=== PATIENT | male | born 1995 | race African-American/Black ===

== ENCOUNTER 2016-08-02 18:29 | Emergency (ER) | payer MEDICAID ==
[2016-08-02 18:34] VITALS: BP 130/61; PULSE 68; TEMP 98.6; BMI 23.3
--- NOTE | 2016-08-02 19:58 | EDPRACDOC ---
- General Information Chief Complaint: Anxiety Illness Stated Complaint: ANXIETY Time Seen by Provider: 08/02/16 19:53 Information Source: Patient Mode of Arrival: Car Home Medications: Home Medications Sertraline HCl 200 mg PO QHS 07/12/15 Divalproex Sodium [Depakote ER] 500 mg PO QHS 02/14/16 Trazodone HCl [Desyrel] 50 mg PO QHS 02/14/16 Ibuprofen Tablet [Motrin] 800 mg PO TID #30 tab 03/13/16 Hydrocodone Bit/Acetaminophen [[place] 5-325 Tablet] 1 each PO Q4H #15 tab Hydrocodone/Acetaminophen [Lortab 5-325 mg Tablet] 1 each PO Q4H PRN #10 tablet 04/08/16 Allergies/Adverse Reactions: Allergies Allergy/AdvReac Type Severity Reaction Status Date / Time No Known Allergies Allergy Verified 03/15/16 13:23 - History 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 HE SAID HE LIVES WITH HIS MOM AND DOES NOT KNOW HOW TO COOK. THE MOM LEFT FOOD AT THE HOUSE, BUT PT DID NOT KNOW HOW TO HEAT IT UP. HE CALLED EMS B/C HE WAS HUNGRY. PT IS NOW ON HIS 2ND SANDWICH AND FEELS BETTER. PT DENIES SI/HI. THE PT DOES C/O OF PAIN IN HIS RIGHT HAND WHERE HE HAD A BOXER'S FX. Reason for Seeking Treatment: 911 Call Presents With: Reports: Anxiety Expresses: Reports: None Suicidal Plan: Reports: None Associated Signs and Symptoms: Reports: Anxiety ED Past Medical History - Patient Medical History Neurological History: Reports: Seizures Psychological History: Reports: Anxiety. Denies: Depression, Substance Use Disorder Additional Past Medical History: AUTISM Surgical History: Reports: No Significant History - Social Medical History Smoking Status: Never smoker Social History: Denies: Substance Use Disorder ETOH: None Substance Abuse: None Lives With: Mom Lives In: Home EDM Review of Systems - Review of Systems ROS Negative Except as Marked: Yes All systems reviewed and were negative except as marked Musculoskeletal: Hand - Physical Exam Constitutional: Alert (Awake), No apparent distress Oriented to: Time, Person, Place Last recorded Vital Signs: Last Vital Signs Temp 98.6 F 08/02/16 18:32 Pulse 68 08/02/16 18:32 Resp 20 08/02/16 18:32 BP 130/61 08/02/16 18:32 Pulse Ox 98 08/02/16 18:32 Oxygen Pulse Oxygen Saturation 98 O2 Device Room Air Oxygen Flow Rate Fraction of Inspired Oxygen ( FIO2) - HEENT Head: Normal ( normocephalic) Eye Exam: Normal (PERRL, EOMI, Sclera white) Oropharynx: Normal (Pharynx:Moist without exudate,Gums-no swelling) ENT EAC: Normal TMJ: Normal Nose: No Symptoms Reported (septum midline) Neck: Normal (FROM, trachea at midline) - Respiratory/Cardiovascular Respiratory: Normal - CTA (BBS clear to auscultation without adventitious sounds ) Cardiovascular: Normal (RRR without murmur, gallop or rub) - GI Auscultation: Normal (NABS) Palpation: Normal (Soft,No rebound or guarding, non distended) Tenderness: Non tender Luz's Sign: Negative - Musculoskeletal Back: Normal (Non-Tender) Extremities: Normal (Normal tone, Pulses 2+ No cyanosis or edema, FROM) Musculoskeletal Comment: TENDERNESS OVER OLD BOXER'S FX SITE. NO SWELLING. - Integumentary Skin: Normal, Warm, Dry Lymphatics: Normal (no adenopathy) - Neurologic Memory Impaired: Normal Motor Function: Normal (Normal tone, Pulses 2+ No cyanosis or edema, FROM) Cranial Nerve: Normal (CN II-X11 intact sensation, strength 5/5) Cerebellar: Normal Mood Description: Normal Perception: Normal Decision Time to Discharge: 20:00 - Departure Yes I personally saw and evaluated the patient. Disposition: Home Condition: Fair Final Diagnosis: Anxiety Instructions: Anxiety (ED) Education/Counseling Given To: Patient Education/Counseling Given Regarding: Diagnosis, Treatment, Follow Up Additional Instructions: F/U WITH PCP
== END 2016-08-02 21:00 | disposition home or self-care (01) ==
LOC: ED 18:29
DX: F41.9 Anxiety disorder, unspecified (principal); F84.0 Autistic disorder; R56.9 Unspecified convulsions; M79.641 Pain in right hand; Z79.899 Other long term (current) drug therapy
CPT/HCPCS: 99283

== ENCOUNTER 2016-08-22 14:24 | Emergency (ER) | payer MEDICAID ==
[2016-08-22 14:25] VITALS: BMI 23.3
[2016-08-22 14:31] VITALS: TEMP 98.4
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
[2016-08-22 16:13] VITALS: BP 122/78; PULSE 102
== END 2016-08-22 16:09 | disposition home or self-care (01) ==
LOC: ED 14:24 → EDMC 16:09
DX: S46.912A Strain of unspecified muscle, fascia and tendon at shoulder and upper arm level, left arm, initial encounter (principal); V87.8XXA Person injured in other specified noncollision transport accidents involving motor vehicle (traffic), initial encounter; Y93.9 Activity, unspecified
CPT/HCPCS: 99282

== ENCOUNTER 2016-08-25 19:11 | Emergency (ER) | payer MEDICAID ==
[2016-08-25 20:11] VITALS: BP 135/65; PULSE 72; TEMP 100.2; BMI 20.7
[2016-08-25] MEDS ORDERED: AZITHROMYCIN 250 MG TAB PO ONE (21:14)
[2016-08-25] MEDS ORDERED: CEFTRIAXONE 250 MG VIAL IM ONE (21:14)
--- NOTE | 2016-08-25 21:16 | EDPRACDOC ---
- General Information Chief Complaint: Sore Throat Stated Complaint: SORE THROAT Time Seen by Provider: 08/25/16 21:10 Information Source: Patient Mode Of Arrival: Car Home Medications: Home Medications Sertraline HCl 200 mg PO QHS 07/12/15 Divalproex Sodium [Depakote ER] 500 mg PO QHS 02/14/16 Trazodone HCl [Desyrel] 50 mg PO QHS 02/14/16 Ibuprofen Tablet [Motrin] 800 mg PO TID #30 tab 03/13/16 Hydrocodone Bit/Acetaminophen [[place] 5-325 Tablet] 1 each PO Q4H #15 tab Hydrocodone/Acetaminophen [Lortab 5-325 mg Tablet] 1 each PO Q4H PRN #10 tablet 04/08/16 Meloxicam [Mobic] 7.5 mg PO BID #20 tab 08/22/16 Acetaminophen with Codeine [TYLENOL WITH CODEINE; [employer] with Codeine] 10 ml PO Q6H PRN #120 ml 08/25/16 Amoxicillin Trihydrate [Amoxicillin] 500 mg PO TID #21 tab 08/25/16 Methylprednisolone [Medrol] 1 pack PO UNK #1 tab.ds.pk 08/25/16 Allergies/Adverse Reactions: Allergies Allergy/AdvReac Type Severity Reaction Status Date / Time No Known Allergies Allergy Verified 08/22/16 14:30 - History of Present Illness Onset: 1 week HPI: Pt c/o sore throat, earache, congestion x 1 week. Denies fever, cp, sob, abd pain, n/v, changes in bowel or bladder, rash. Pt request to be checked for STD. Denies penile discharge Sore Throat Symptoms: Reports: Pain, Hoarse White Spots Location: Reports: Pharynx Recent: Reports: None Relevant History of: Reports: None Pain Severity: Reports: Moderate Urinary Output: Normal Oral Intake: Decreased Associated Signs and Symptoms: Reports: Nasal Symptoms, Earache ED Past Medical History - History Reviewed Yes Nurses notes reviewed and agree except as marked - Patient Medical History Neurological History: Reports: Seizures Psychological History: Reports: Depression, Anxiety. Denies: Substance Use Disorder Additional Past Medical History: AUTISM - Social Medical History Smoking Status: Heavy tobacco smoker (5 or more cigarettes/day or daily pipe/ cigar) Social History: Denies: Substance Use Disorder ETOH: None Substance Abuse: None EDM Review of Systems - Review of Systems Constitutional: No Symptoms Reported. negative: Fever, Chills, Weakness, Fatigue, Loss of Appetite Ears: Pain Throat: Pain, Hoarseness Nose: Congestion Mouth: No Symptoms Reported. negative: Pain, Drooling Respiratory: No Symptoms Reported. negative: Cough, Brassy Cough, Barky Cough, Shortness of Breath, Wheezing, Hemoptysis Cardiovascular: No Symptoms Reported. negative: Chest Pain, Palpitations, Syncope, Edema, Orthopnea, PND, Skin Mottling, Cyanosis Gastrointestinal: No Symptoms Reported. negative: Pain, Constipation, Nausea, Vomiting, Diarrhea, Melena, Formula Intolerance Genitourinary: No Symptoms Reported. negative: Dysuria, Hematuria, Frequency, Discharge, Bleeding, Testicular Pain, Neurological: No Symptoms Reported. negative: Headache, Dizziness, Seizure, Numbness, Weakness, Speech Difficulty, Gait Difficulty Musculoskeletal: No Symptoms Reported. negative: Neck, Chestwall, Ribs, Back, Shoulder, Arm, Elbow, Forearm, Wrist, Hand, Pelvis, Hip, Femur, Knee, Leg, Ankle , Foot Integumentary: No Symptoms Reported. negative: Itching, Rash, Bruising, Wound Allergic/Immunologic: No Symptoms Reported. negative: Hives, Itching Hematologic: No Symptoms Reported. negative: Lymphadenopathy, Easy Bruising, Easy Bleeding Psychiatric: No Symptoms Reported. negative: Anxiety, Depression, Hallucinations, Insomnia, Suicidal - Physical Exam Constitutional: Alert Oriented to: Time, Person, Place Last recorded Vital Signs: Last Vital Signs Temp 100.2 F 08/25/16 20:10 Pulse 72 08/25/16 20:10 Resp 20 08/25/16 20:10 BP 135/65 08/25/16 20:10 Pulse Ox 97 08/25/16 20:10 Oxygen Pulse Oxygen Saturation 97 O2 Device Room Air Oxygen Flow Rate Fraction of Inspired Oxygen ( FIO2) - HEENT Head: Normal ( normocephalic) Eye Exam: Normal (PERRL, EOMI, Sclera white) Oropharynx: Red, Tonsillar Hypertrophy Tympanic Membrane: Bulging, Redness (R) ENT EAC: Normal Nose: Congestion Neck: Normal (FROM, trachea at midline) - Respiratory/Cardiovascular Respiratory: Normal - CTA (BBS clear to auscultation without adventitious sounds ) Cardiovascular: Normal (RRR without murmur, gallop or rub) - GI Auscultation: Normal (NABS) Palpation: Normal (Soft,No rebound or guarding, non distended) Tenderness: Non tender - Musculoskeletal Back: Normal (Non-Tender) Extremities: Normal (Normal tone, Pulses 2+ No cyanosis or edema, FROM) - Integumentary Skin: Normal, Warm, Dry Lymphatics: Normal (no adenopathy) - Neurologic Memory Impaired: Normal Motor Function: Normal (Normal tone, Pulses 2+ No cyanosis or edema, FROM) Mood Description: Normal Perception: Normal - Differential Diagnosis Other (OM), Pharyngitis Streptococcal, Pharyngitis Viral, URI Decision Time to Discharge: 21:17 - Departure Disposition: Home Condition: Good Final Diagnosis: Streptococcal sore throat Otitis media Qualifiers: Otitis media type: unspecified Laterality: right Chronicity: unspecified Qualified Code(s): H66.91 - Otitis media, unspecified, right ear Instructions: Strep Throat (ED), Otitis Media (ED) Education/Counseling Given To: Patient Education/Counseling Given Regarding: Diagnosis, Treatment, Follow Up Referrals: None,No Provider [Primary Care Provider] - One Week Ruiz Reddy MD [Staff Physician] - One Week Prescriptions: New Acetaminophen with Codeine [TYLENOL WITH CODEINE; [employer] with Codeine] 10 ml PO Q6H PRN #120 ml PRN Reason: Pain Amoxicillin Trihydrate [Amoxicillin] 500 mg PO TID #21 tab Methylprednisolone [Medrol] 1 pack PO UNK #1 tab.ds.pk No Action Sertraline HCl 200 mg PO QHS Trazodone HCl [Desyrel] 50 mg PO QHS Divalproex Sodium [Depakote ER] 500 mg PO QHS Ibuprofen Tablet [Motrin] 800 mg PO TID #30 tab Hydrocodone Bit/Acetaminophen [[place] 5-325 Tablet] 1 each PO Q4H #15 tab Hydrocodone/Acetaminophen [Lortab 5-325 mg Tablet] 1 each PO Q4H PRN #10 tablet PRN Reason: Pain Meloxicam [Mobic] 7.5 mg PO BID #20 tab Additional Instructions: Return for worse or different symptoms.
[2016-08-25] MEDS ORDERED: WATER 10 ML ONE (21:20)
[2016-08-25 21:36] LABS: LEUKOCYTES/URINE NEG (NEGATIVE); NITRITE/URINE NEG (NEGATIVE); RBC/URINE 0-2 (0-2); URINE OCCULT BLOOD NEG (NEG/TRACE); WBC/URINE 0-2 (0-2)
[2016-08-27 21:40] LABS: CHLAMY BY NUCLEIC ACID AMP Negative (Negative)
[2016-08-28 07:57] LABS: GC BY NUCLEIC ACID AMP Negative (Negative)
== END 2016-08-25 22:00 | disposition home or self-care (01) ==
LOC: EDMC 19:11
DX: J02.0 Streptococcal pharyngitis (principal)
CPT/HCPCS: 81001; 87491; 87591; 96372; 99282; J0696; J3490